=== PATIENT | female | born 1990 | race Caucasian/White ===

== ENCOUNTER 2019-07-08 11:42 | Emergency (ER) | payer MEDICAID ==
[~2019-07-08] VITALS: Ht 165.1 cm; Wt 100.0 kg
[~2019-07-08 11:42] MED LIST: PREN-88 *
[2019-07-08] MEDS ORDERED: SODIUM CHLORIDE 0.9% 1,000 ML IV ONE (12:02)
[2019-07-08] MEDS ORDERED: ONDANSETRON HCL 4MG/2ML INJ IV ONE (12:15)
[2019-07-08 12:49] LABS: BASOPHILS % 0.5 % (0.0-2.0); EOSINOPHILS % 0.7 % (0.0-5.0); HEMATOCRIT. 36.3 % (36.0-48.0); HEMOGLOBIN. 12.3 g/dL (12.0-16.0); LYMPHOCYTES % 30.4 % (20.0-50.0); MEAN CORPUSCULAR HEMOGLOBIN 29.7 pg (28.0-32.0); MEAN CORPUSCULAR VOLUME 87.6 fL (81.0-99.0); MONOCYTES % 7.4 % (2.0-8.0); PLATELET 160 x1000/uL (130-400); RED BLOOD CELL COUNT 4.14 mill/uL (4.2-5.4); RED CELL DISTRIBUTION WIDTH 14.7 % (11.6-14.6)
[2019-07-08 13:26] LABS: B-HCG QUANTITATIVE 36453 mIU/mL (<3)
[2019-07-08 13:31] LABS: CHLORIDE 106 mEq/L (98-107)
[2019-07-08 14:52] LABS: *AMPHETAMINES SCREEN URINE NEGATIVE (NEGATIVE); *BARBITURATES SCREEN URINE NEGATIVE (NEGATIVE); *BENZODIAZEPINES SCREEN URINE NEGATIVE (NEGATIVE); *COCAINE SCREEN URINE NEGATIVE (NEGATIVE); OPIATES URINE SCREEN NEGATIVE (NEGATIVE); PHENCYCLIDINE URINE SCREEN NEGATIVE (NEGATIVE)
[2019-07-08 14:53] LABS: CANNABINOID URINE SCREEN NEGATIVE (NEGATIVE); METHADONE URINE SCREEN NEGATIVE (NEGATIVE)
[2019-07-08 15:00] LABS: CLARITY URINE CLEAR (CLEAR); COLOR URINE YELLOW (YELLOW); KETONES URINE NEGATIVE (NEGATIVE); LEUKOCYTE ESTERASE URINE NEGATIVE (NEGATIVE); NITRITE URINE NEGATIVE (NEGATIVE); OCCULT BLOOD URINE NEGATIVE (NEGATIVE); PH URINE 8.5 (4.5-8.0); PROTEIN URINE NEGATIVE (NEGATIVE); SPECIFIC GRAVITY URINE 1.023 (1.005-1.030); UROBILINOGEN URINE 0.2 E.U./dL (0.2-1.0)
[2019-07-08 16:35] VITALS: BP 128/72
== END 2019-07-08 17:05 | disposition home or self-care (01) ==
LOC: ER 11:42
DX: O26.892 Other specified pregnancy related conditions, second trimester (principal); R42 Dizziness and giddiness; O21.0 Mild hyperemesis gravidarum; Z3A.15 15 weeks gestation of pregnancy
CPT/HCPCS: 36415; 76805; 80053; 80305; 81003; 81025; 84484; 84702; 85025; 86850; 86900; 86901; 93005; 96361; 96374; 99284; J2405; J7030

== ENCOUNTER 2019-09-21 14:08 | Observation (INO) | payer MEDICAID ==
[~2019-09-21] VITALS: Ht 165.1 cm; Wt 105.2 kg
[2019-09-21 16:09] LABS: CLARITY URINE CLEAR (CLEAR); COLOR URINE DARK YELLOW (YELLOW); KETONES URINE TRACE (NEGATIVE); LEUKOCYTE ESTERASE URINE NEGATIVE (NEGATIVE); NITRITE URINE NEGATIVE (NEGATIVE); OCCULT BLOOD URINE NEGATIVE (NEGATIVE); PROTEIN URINE 1+ (NEGATIVE); SPECIFIC GRAVITY URINE 1.032 (1.005-1.030)
== END 2019-09-21 18:50 | disposition home or self-care (01) ==
LOC: 8 EST LDRP 14:08
PROVIDERS: ADMIT Obstetrics & Gynecology; ATTEND Obstetrics & Gynecology
DX: O26.892 Other specified pregnancy related conditions, second trimester (principal); R10.10 Upper abdominal pain, unspecified; R10.30 Lower abdominal pain, unspecified; Z3A.26 26 weeks gestation of pregnancy
CPT/HCPCS: 76805; 76818; 81003; 99281; G0378

== ENCOUNTER 2019-12-08 12:27 | Inpatient (IN) | payer MEDICAID ==
[~2019-12-08] VITALS: Ht 165.1 cm; Wt 113.4 kg
[2019-12-08] MEDS ORDERED: DEXT 5%/LR + PITOCIN 20UNITS/L 1,000 ML IV SCH ×2 (13:27→17:58)
[2019-12-08] MEDS ORDERED: CARBOPROST TROMETHAMINE 250 MCG/ML AMPUL IM PRN (13:30)
[2019-12-08] MEDS ORDERED: CITRIC ACID/SODIUM CITRATE SOLN 30ML UDC PO ONE (13:30)
[2019-12-08] MEDS ORDERED: METHYLERGONOVINE MALEATE 0.2 MG/ML IM PRN (13:30)
[2019-12-08] MEDS ORDERED: PNEUMOCOCCAL 23-VAL P-SAC VAC 0.5 ML IM ONE (14:00)
[2019-12-08] MEDS: LACTATED RINGERS 1,000 ML IV SCH ×2 (14:29→15:18)
[2019-12-08 14:51] LABS: CLARITY URINE CLEAR (CLEAR); COLOR URINE YELLOW (YELLOW); KETONES URINE TRACE (NEGATIVE); LEUKOCYTE ESTERASE URINE NEGATIVE (NEGATIVE); NITRITE URINE NEGATIVE (NEGATIVE); OCCULT BLOOD URINE NEGATIVE (NEGATIVE); PH URINE 6.5 (4.5-8.0); PROTEIN URINE NEGATIVE (NEGATIVE); SPECIFIC GRAVITY URINE 1.015 (1.005-1.030)
[2019-12-08 15:04] LABS: *AMPHETAMINES SCREEN URINE NEGATIVE (NEGATIVE); *BARBITURATES SCREEN URINE NEGATIVE (NEGATIVE); *BENZODIAZEPINES SCREEN URINE NEGATIVE (NEGATIVE); *COCAINE SCREEN URINE NEGATIVE (NEGATIVE)
[2019-12-08 15:05] LABS: CANNABINOID URINE SCREEN NEGATIVE (NEGATIVE); METHADONE URINE SCREEN NEGATIVE (NEGATIVE); OPIATES URINE SCREEN NEGATIVE (NEGATIVE); PHENCYCLIDINE URINE SCREEN NEGATIVE (NEGATIVE)
[2019-12-08 15:19] LABS: BASOPHILS % 0.5 % (0.0-2.0); EOSINOPHILS % 0.4 % (0.0-5.0); HEMATOCRIT. 37.8 % (36.0-48.0); HEMOGLOBIN. 12.8 g/dL (12.0-16.0); LYMPHOCYTES % 29.6 % (20.0-50.0); MEAN CORPUSCULAR HEMOGLOBIN 28.9 pg (28.0-32.0); MEAN CORPUSCULAR VOLUME 85.3 fL (81.0-99.0); MEAN PLATELET VOLUME 10.3 fl (7.4-10.4); MONOCYTES % 9.2 % (2.0-8.0); NEUTROPHILS % 60.3 % (40.0-76.0); PLATELET 143 x1000/uL (130-400); RED BLOOD CELL COUNT 4.43 mill/uL (4.2-5.4); RED CELL DISTRIBUTION WIDTH 16.6 % (11.6-14.6)
[2019-12-08 15:50] LABS: HEPATITIS B SURFACE ANTIGEN NEGATIVE
[2019-12-08] MEDS ORDERED: MORPHINE SULFATE/PF 1MG/ML 10ML AMP ONE (16:01)
[2019-12-08] MEDS ORDERED: FENTANYL CITRATE/PF 50MCG/ML 2ML VIAL ONE (16:01)
[2019-12-08] MEDS ORDERED: CEFAZOLIN SODIUM 1000MG/VIAL ONE (16:01)
[2019-12-08] MEDS ORDERED: OXYTOCIN 10 UNITS/ML 1ML ONE (16:02)
[2019-12-08] MEDS ORDERED: PHENYLEPHRINE HCL 10 MG/ML 1ML (IV VIAL) IV ONE (16:02)
[2019-12-08] MEDS ORDERED: EPHEDRINE SULFATE 50MG/ML VIAL ONE (16:02)
[2019-12-08] MEDS ORDERED: SODIUM CHLORIDE 0.9% 10ML VIAL ONE (16:02)
[2019-12-08] MEDS ORDERED: ONDANSETRON HCL 4MG/2ML INJ ONE (16:03)
[2019-12-08] MEDS ORDERED: METOCLOPRAMIDE HCL 10MG/2ML VIAL ONE (16:03)
[2019-12-08] MEDS ORDERED: ONDANSETRON HCL 4MG/2ML INJ IV PRN (16:30)
[2019-12-08] MEDS ORDERED: DIPHENHYDRAMINE 50MG/ML VIAL IV PRN (16:30)
[2019-12-08] MEDS ORDERED: METOCLOPRAMIDE HCL 10MG/2ML VIAL IV PRN (16:30)
[2019-12-08] MEDS ORDERED: RHO(D) IMMUNE GLOBULIN 300 MCG/SYR IM PRN (18:00)
[2019-12-08] MEDS ORDERED: IBUPROFEN 400MG TABLET PO PRN (18:00)
[2019-12-08] MEDS ORDERED: KETOROLAC 30MG/ML VIAL IV PRN (18:00)
[2019-12-08] MEDS ORDERED: BISACODYL 10MG SUPP PR PRN (18:00)
[2019-12-08 19:13] LABS: INR 0.9
[2019-12-08 20:20] VITALS: BP 129/79
[2019-12-09] VITALS: BP 111/59
[2019-12-09 04:00] VITALS: BP 115/57
[2019-12-09 05:48] LABS: BASOPHILS % 0.4 % (0.0-2.0); EOSINOPHILS % 0.2 % (0.0-5.0); HEMATOCRIT. 33.4 % (36.0-48.0); HEMOGLOBIN. 11.5 g/dL (12.0-16.0); MEAN CORPUSCULAR HEMOGLOBIN 29.2 pg (28.0-32.0); MEAN CORPUSCULAR VOLUME 84.7 fL (81.0-99.0); MEAN PLATELET VOLUME 10.6 fl (7.4-10.4); NEUTROPHILS % 70.4 % (40.0-76.0); PLATELET 119 x1000/uL (130-400); RED BLOOD CELL COUNT 3.94 mill/uL (4.2-5.4); RED CELL DISTRIBUTION WIDTH 16.9 % (11.6-14.6)
[2019-12-09] MEDS: LACTATED RINGERS 1,000 ML IV SCH ×2 (07:44→16:21)
[2019-12-09 08:00] VITALS: BP 114/60
[2019-12-09 15:59] VITALS: BP 119/67
[2019-12-09] MEDS: IBUPROFEN 800MG TABLET PO PRN ×2 (16:21→23:08)
[2019-12-09 22:00] VITALS: BP 108/66
[2019-12-10 01:00] VITALS: BP 112/67
[2019-12-10 06:00] VITALS: BP 114/66
[2019-12-10] MEDS: IBUPROFEN 800MG TABLET PO PRN (06:13)
[2019-12-10] MEDS ORDERED: IBUP-2030 MT (07:07)
[2019-12-10 07:45] VITALS: BP 119/68
== END 2019-12-10 10:00 | disposition home or self-care (01) | DRG 540 ==
LOC: OBSVTOIN 12:27 → 8 EST LDRP 12:27 → 8EST 20:04
PROVIDERS: ADMIT Obstetrics & Gynecology; ATTEND Obstetrics & Gynecology
PROC: 10D00Z1 Extraction of Products of Conception, Low, Open Approach (ICD-10-PCS; principal; 2019-12-08)
DX: O34.211 Maternal care for low transverse scar from previous cesarean delivery (principal); D69.6 Thrombocytopenia, unspecified; O99.12 Other diseases of the blood and blood-forming organs and certain disorders involving the immune mechanism complicating childbirth; O36.63X0 Maternal care for excessive fetal growth, third trimester, not applicable or unspecified; Z37.0 Single live birth; Z3A.38 38 weeks gestation of pregnancy
CPT/HCPCS: 36415; 80305; 81003; 82962; 85025; 86592; 86703; 86762; 86850; 86900; 86920; 87340; 88307; 99281; J0690; J1200; J1885; J2274; J2370; J2405; J2590; J2765; J3010; J3490; J7120